=== PATIENT | female | born 1955 | race Caucasian/White ===

== ENCOUNTER → 2016-07-05 | Outpatient (CLI) | payer BC ==
--- NOTE | 2016-07-06 08:49 | MM ---
Reason for exam: screening (asymptomatic). Last mammogram was performed 1 year and 5 months ago. History: Patient is postmenopausal and had first child at age 36. Took estrogen for 2 years beginning at age 36. Physical Findings: A clinical breast exam by your physician is recommended on an annual basis and results should be correlated with mammographic findings. MG 3D Screening Mammo W/Cad Bilateral CC and MLO view(s) were taken. Prior study comparison: February 14, 2015, bilateral MG 3d screening mammo w/cad. October 31, 2007, bilateral digital screening mammogram. There are scattered fibroglandular densities. There is no discrete abnormality. No significant changes when compared with prior studies. ASSESSMENT: Negative, BI-RAD 1 RECOMMENDATION: Routine screening mammogram of both breasts in 1 year.
--- NOTE | 2016-07-06 13:33 | BD ---
EXAMINATION TYPE: MG DEXA axial skeleton. DATE OF EXAM: 07/05/2016 3:45 PM COMPARISON: 2004 CLINICAL HISTORY: POST MENOPAUSAL Height: 5'5 Weight: 185 FRAX RISK QUESTIONS: Alcohol (3 or more units per day): no Family History (Parent hip fracture): no Glucocorticoids (More than 3mos): no (Ex: prednisone, prednisolone, methylprednisolone, dexamethasone, and hydrocortisone). History of Fracture in Adulthood: no Secondary Osteoporosis: 1. Type 1 Diabetes: no 2. Hyperthyroidism: no 3. Menopause before 45: yes 4. Malnutrition: no 5. Chronic liver disease: no Rheumatoid Arthritis: no Current Tobacco Use: no RISK FACTORS HISTORY OF: Drink Alcohol: Diet low in dairy products/other sources of calcium: Postmenopausal woman: MEDICATIONS: Additional Medications: Additional History: post menopausal EXAM MEASUREMENTS: Bone mineral densitometry was performed using the Doximity System. Bone mineral density as measured about the Lumbar spine is: ----- L1-L4(G/cm2): 1.528 T Score Values are as follows: ----- L2: 3.4 ----- L3: 3.5 ----- L4: 2.4 ----- L1-L4:2.9 Bone mineral density has: Increased 1.2% since study of: 09/21/2004 Bone mineral density about the R hip (g/cm2): 0.954 Bone mineral density about the L hip (g/cm2): 0.948 T Score values are as follows: -----R Neck: -0.6 -----L Neck: -0.6 -----R Intertrochanter: 0.3 -----L Intertrochanter: 0.0 Bone mineral density has: Decreased -5.0% since study of: 09/21/2004 IMPRESSION: Normal (Values between +1 and -1 indicate normal bone mass) NOTE: T-SCORE=SD OF THE YOUNG ADULT MEAN.
== END | disposition home or self-care (01) ==
LOC: RADMAMWWP 14:59
PROVIDERS: ATTEND Family Medicine
DX: Z12.31 Encounter for screening mammogram for malignant neoplasm of breast (principal); Z13.820 Encounter for screening for osteoporosis; Z78.0 Asymptomatic menopausal state
CPT/HCPCS: 77080; 77063; G0202

== ENCOUNTER → 2017-09-20 | Outpatient (CLI) | payer BC ==
--- NOTE | 2017-09-20 08:34 | MR ---
EXAMINATION TYPE: MR brain wo con DATE OF EXAM: 09/20/2017 COMPARISON: NONE HISTORY: Hyperlipidemia and vascular dementia per order. Memory loss per patient. TECHNIQUE: Multiplanar, multisequence imaging of the brain and brainstem is performed without IV cont rast. FINDINGS: Diffusion weighted images demonstrate no evidence of a recent infarct or other diffusion abnormality. There is no extraaxial fluid collection or significant white matter signal abnormality. The ventricu lar system and cisternal spaces are normal in size and appearance. The brain volume is age appropria te. Midline structures demonstrate normal morphology. The craniocervical junction appears within normal limits. Normal vascular flow voids are present. Dominant left vertebral artery is incidentally noted. The visualized sinuses are clear and the globes are intact. IMPRESSION: No significant finding is seen to account for patient's symptoms.
== END ==
LOC: RADMRIMAIN 07:31
PROVIDERS: ATTEND Physician Assistant Medical
DX: F01.50 Vascular dementia, unspecified severity, without behavioral disturbance, psychotic disturbance, mood disturbance, and anxiety (principal); E78.2 Mixed hyperlipidemia
CPT/HCPCS: 70551

== ENCOUNTER → 2024-04-17 | Outpatient (CLI) | payer MEDICARE ==
--- NOTE | 2024-04-18 07:22 | MM ---
Reason for Exam: Screening (asymptomatic). Last mammogram was performed 1 year(s) and 4 month(s) ago. Patient History: Menarche at age 9. First Full-Term at age 36. Late child-bearing (after 30). Left ovary removed at age 36. Right ovary removed at age 36. Hysterectomy at age 36. Postmenopausal. Estrogen for 2 years from age 36 until age 38. Risk Values: Reshma 5 year model risk: 2.6%. NCI Lifetime model risk: 8.3%. Prior Study Comparison: 02/14/2015 Bilateral Screening Mammogram, [facility]. 07/05/2016 Bilateral Screening Mammogram, [facility]. 12/30/2022 Bilateral MG 3D screening mammo w/cad, [facility]. Tissue Density: There are scattered areas of fibroglandular density. Findings: Analyzed By CAD. Right breast: There is no suspicious group of microcalcifications or new suspicious mass. Left breast: There is no suspicious group of microcalcifications or new suspicious mass. Overall Assessment: Negative, BI-RAD 1 Management: Screening Mammogram of both breasts in [address] [facility] will attempt to contact patient to return for supplemental views and ultrasound if indicated. Patient should continue monthly self-breast exams. A clinical breast exam by your physician is recommended on an annual basis. This exam should not preclude additional follow-up of suspicious palpable abnormalities. Note on Reshma scores and lifetime risk: 1. A Reshma score greater than 3% is considered moderate risk. If this is the case, consider specialist referral to assess eligibility for a risk reducing agent. 2. If overall lifetime risk for the development of breast cancer is 20% or higher, the patient may qualify for future screening with alternating mammogram and breast MRI. [facility], , 04/18/2024 7:19 AM. Electronically signed and approved by: Gerardo Lee DO
== END | disposition home or self-care (01) ==
LOC: RADMAMWWP 16:20
PROVIDERS: ATTEND Family Medicine
DX: Z12.31 Encounter for screening mammogram for malignant neoplasm of breast (principal); R92.323 Mammographic fibroglandular density, bilateral breasts; Z78.0 Asymptomatic menopausal state; Z90.721 Acquired absence of ovaries, unilateral
CPT/HCPCS: 77063; 77067

== ENCOUNTER → 2024-08-12 | Outpatient (CLI) | payer MEDICARE ==
--- NOTE | 2024-08-13 08:39 | XR ---
EXAMINATION TYPE: XR chest 2V DATE OF EXAM: 08/12/2024 2:09 PM COMPARISON: None CLINICAL INDICATION: Female, 68 years old with history of [id number] COUGH, WHEEZING, , TECHNIQUE: Frontal and lateral views FINDINGS: Heart normal size. Hyperinflation. Some strandy atelectasis left base. Atherosclerotic arch calcifica tions. No consolidation or pleural effusion. IMPRESSION: Hyperinflation may relate to depth of inspiration or underlying emphysema. Otherwise, no acute proces s is seen. [facility], , 08/13/2024 8:37 AM
== END | disposition home or self-care (01) ==
LOC: RADXRYALE 13:54
PROVIDERS: ATTEND Physician Assistant
DX: J43.9 Emphysema, unspecified (principal)
CPT/HCPCS: 71046